=== PATIENT | male | born 1990 | race Caucasian/White ===

== ENCOUNTER 2018-10-16 13:20 | Emergency (ER) | payer OTHER ==
[~2018-10-16] VITALS: Ht 175.2 cm; Wt 79.4 kg
[~2018-10-16 13:20] MED LIST: CLINDAMYCIN HC300 MG PO; FLEXERIL10 MG PO; HYDROCODONE BIT1 T11 PO; KEFLEX500 MG PO; MEDROL DOSEPAK4 MG PO; MOTRIN800 MG PO; NKHM; Peridex 473 ML473 ML PO
[2018-10-16 13:22] VITALS: BP 117/82
[2018-10-16] MEDS ORDERED: ACULAR 0.5%3 ML OPH ×2 (14:38→14:40)
[2018-10-16] MEDS ORDERED: Tobrex Ophth S2.5 ML OPH ×2 (14:38→14:40)
== END 2018-10-16 14:47 | disposition home or self-care (01) ==
LOC: ED 13:20
DX: T15.02XA Foreign body in cornea, left eye, initial encounter (principal); Z79.2 Long term (current) use of antibiotics; Z79.899 Other long term (current) drug therapy; X58.XXXA Exposure to other specified factors, initial encounter; Y93.89 Activity, other specified; Y92.89 Other specified places as the place of occurrence of the external cause; Y99.8 Other external cause status

== ENCOUNTER → 2021-08-01 | Outpatient (CLI) | payer OTHER ==
[~2021-08-01] MED LIST changes: +ACULAR 0.5%3 ML OPH; +Tobrex Ophth S2.5 ML OPH
== END | disposition home or self-care (01) ==
LOC: COVID19 16:06
PROVIDERS: ATTEND Internal Medicine
DX: U07.1 COVID-19 (principal)